=== PATIENT | male | born 1995 | race Caucasian/White ===

== ENCOUNTER → 2017-02-16 | Outpatient (CLI) | payer OTHER ==
[~2017-02-16] MED LIST: OPTIRAY 320 IV PRN
--- NOTE | 2017-02-16 14:55 | DIAGNOSTIC IMAGING REPORT ---
RIGHT FOOT CT CT DOSE: HISTORY: ENCHONDROMATOSIS; PAIN IN RIGHT TOES TECHNIQUE: Multiaxial CT images of the right foot were performed and reformatted in the sagittal and coronal plane without the use of contrast. A dose lowering technique was utilized adhering to the principles of ALARA. COMPARISON: Outside hospital right foot MRI 02/14/2017. FINDINGS: No acute fracture dislocation within the right foot. Mild soft tissue thickening/swelling within the first toe. The distal falx of the first toe is suboptimally evaluated due to mild motion artifact. There appears to be sclerosis at the distal tuft with a focal erosion measuring 5 mm. This demonstrates cortical breakthrough superiorly. There is no definite associated soft tissue mass. IMPRESSION: Abnormal appearance of the distal phalanx of the first toe with mild soft tissue thickening/swelling. No definite soft tissue masses. There appears to be sclerosis at the distal tuft with a focal 5 mm erosion which demonstrates cortical breakthrough superiorly. This favors old trauma/repetitive stress injury versus a chronic osteomyelitis. The 5 mm erosion/lucency at also represent a small lesion such as an enchondroma or glomus tumor. However, this is considered less likely. Electronically signed by: Jace West M.D. 02/16/2017 2:54 PM Dictated Date/Time: 02/16/2017 2:35 PM
== END | disposition home or self-care (01) ==
LOC: C.CTS 13:40
PROVIDERS: ATTEND Podiatrist
DX: M79.674 Pain in right toe(s) (principal); Q78.4 Enchondromatosis; R93.7 Abnormal findings on diagnostic imaging of other parts of musculoskeletal system